=== PATIENT | female | born 1940 | race Caucasian/White ===

== ENCOUNTER → 2020-01-26 | Outpatient (CLI) | payer MEDICARE, BC ==
--- NOTE | 2020-01-26 17:23 | RADIOLOGY REPORT (SQ) ---
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 TECHNIQUE: Dynamic and static lozano scale and color images acquired of the right leg venous system. S elected spectral images acquired with additional compression and augmentation maneuvers. The contrala teral common femoral vein and saphenofemoral junction were also imaged. Images stored on PACS. LIMITATIONS: None. FINDINGS: COMMON FEMORAL: Normal phasicity, compression and augmentation. No visualized echogenic ma terial on lozano scale. No defects on color images. FEMORAL: Normal compression and augmentation. No visualized echogenic material on lozano scale. No defe cts on color images. POPLITEAL: Normal compression, augmentation. No visualized echogenic material on lozano scale. No defec ts on color images. CALF VESSELS: Decreased compressibility and nonocclusive intraluminal defect on grayscale and color f low evaluation within the peroneal vein compatible with thrombus. GSV and SSV: Normal compression, augmentation. No visualized echogenic material on lozano scale. No def ects on color images. ANY DEEP VENOUS INSUFFICIENCY: Not evaluated. ANY EVIDENCE OF POPLITEAL CYST: No. OTHER: No other significant finding. CONTRALATERAL COMMON FEMORAL VEIN AND SAPHENOFEMORAL JUNCTION: Normal phasicity, compression and augmentation. No visualized echogenic material on lozano scale. No de fects on color images. IMPRESSION: Nonocclusive short segment acute appearing DVT within the right peroneal vein. TECHNICAL DOCUMENTATION: JOB ID: [id number] 2010 [employer]- All Rights Reserved Reading location - IP/workstation name: [email or web address]
== END ==
LOC: SP 15:41
PROVIDERS: ATTEND Radiology Radiation Oncology
DX: C53.9 Malignant neoplasm of cervix uteri, unspecified (principal); M79.661 Pain in right lower leg
CPT/HCPCS: 93971

== ENCOUNTER 2020-02-02 09:39 | Day surgery (SDC) | payer MEDICARE, BC ==
[2020-01-29 12:33] LABS: ABSOLUTE BASOPHILS # (AUTO) 0.1 10^3/uL (0.0-0.2); ABSOLUTE EOSINOPHILS # (AUTO) 0.1 10^3/uL (0.0-0.6); ABSOLUTE LYMPHOCYTES (AUTO) 1.8 10^3/uL (0.5-4.7); ABSOLUTE NEUT (AUTO) 14.2 10^3/uL (1.7-8.2); BASOPHILS % (AUTO) 0.6 % (0-2); EOSINOPHILS % (AUTO) 0.6 % (0-6); HEMOGLOBIN 11.2 g/dL (12.0-15.5); LYMPHOCYTES % (AUTO) 10.6 % (13-45); MEAN CORPUSCULAR HEMOGLOBIN 30.1 pg (27.0-33.4); MEAN CORPUSCULAR HGB CONC 33.9 g/dL (32.0-36.0); MEAN CORPUSCULAR VOLUME 89 fl (80-97); MONOCYTES % (AUTO) 5.8 % (3-13); PLATELET COUNT 454 10^3/uL (150-450); RED BLOOD COUNT 3.72 10^6/uL (3.72-5.28); RED CELL DISTRIBUTION WIDTH 14.4 % (11.5-14.0); SEGMENTED NEUTROPHILS % (AUTO) 82.4 % (42-78); TOTAL CELLS COUNTED % (AUTO) 100 %; WHITE BLOOD COUNT 17.2 10^3/uL (4.0-10.5)
--- NOTE | 2020-01-29 12:34 | RADIOLOGY REPORT (SQ) ---
EXAM DESCRIPTION: CHEST PA/LATERAL IMAGES COMPLETED DATE/TIME: 01/29/2020 11:32 am REASON FOR STUDY: PRE-OP COMPARISON: None. EXAM PARAMETERS: NUMBER OF VIEWS: two views TECHNIQUE: Digital Frontal and Lateral radiographic views of the chest acquired. RADIATION DOSE: NA LIMITATIONS: none FINDINGS: LUNGS AND PLEURA: Elevated right hemidiaphragm. No infiltrate or effusion. No mass. MEDIASTINUM AND HILAR STRUCTURES: No masses or contour abnormalities. HEART AND VASCULAR STRUCTURES: Heart normal size. No evidence for failure. BONES: No acute findings. HARDWARE: None in the chest. OTHER: No other significant finding. IMPRESSION: NO SIGNIFICANT RADIOGRAPHIC FINDING IN THE CHEST. TECHNICAL DOCUMENTATION: JOB ID: [id number] 2010 [employer]- All Rights Reserved Reading location - IP/workstation name: [email or web address]
[2020-01-29 12:59] LABS: ANION GAP 15 (5-19); BLOOD UREA NITROGEN 53 mg/dL (7-20); CARBON DIOXIDE 28 mmol/L (22-30); CHLORIDE 94 mmol/L (98-107); GLUCOSE 136 mg/dL (75-110); POTASSIUM 4.4 mmol/L (3.6-5.0)
--- NOTE | 2020-01-29 19:27 | EKG REPORT ---
SEVERITY:- ABNORMAL ECG - SINUS RHYTHM NONSPECIFIC T ABNORMALITIES, ANT-LAT LEADS : Confirmed by: Brianna Cardoso MD 29-Jan-2020 19:25:55
[~2020-02-02 09:39] MED LIST: CEFAZOLIN 1 GM/D5W RTU 1 GM/50 ML RTUPB IV PRN; FENTANYL CITRATE INJ/PF 100 MCG/2 ML AMPUL ONE; LACTATED RINGERS 1000 ML IV PRN; MIDAZOLAM 2 MG/2 ML INJ ONE; ONDANSETRON HCL INJ/PF 4 MG/2 ML SDV ONE; PROPOFOL INJ 200 MG/20 ML VIAL IV ONE
[2020-02-02] MEDS ORDERED: CEFAZOLIN 1 GM/D5W RTU 1 GM/50 ML RTUPB IV ONE (10:19)
[2020-02-02 11:14] LABS: INTERNATIONAL RATION (INR) 1.05; PARTIAL THROMBOPLASTIN TIME 31.1 SEC (23.5-35.8); PROTHROMBIN TIME 13.9 SEC (11.4-15.4)
[2020-02-02 11:28] LABS: POTASSIUM 3.7 mmol/L (3.6-5.0)
[2020-02-02] MEDS ORDERED: HEPARIN SOD (PORCINE) 1,000 UNIT/ML 1 ML VIAL ONE (12:13)
[2020-02-02] MEDS ORDERED: LIDOCAINE 1%/EPINEPHRINE INJ 20 ML VIAL ONE (12:13)
[2020-02-02] MEDS ORDERED: ONDANSETRON HCL INJ/PF 4 MG/2 ML SDV IV PRN (12:54)
[2020-02-02] MEDS ORDERED: DIPHENHYDRAMINE HCL 50 MG/ML VIAL IV PRN (12:54)
[2020-02-02] MEDS ORDERED: MORPHINE SULFATE 10 MG/ML INJ IV PRN (12:54)
[2020-02-02] MEDS ORDERED: PROMETHAZINE HCL INJ 25 MG/1 ML VIAL IV PRN (12:54)
[2020-02-02] MEDS ORDERED: MEPERIDINE HCL/PF INJ 25 MG/1 ML DISP.SYRIN IV PRN (12:54)
[2020-02-02] MEDS ORDERED: FENTANYL CITRATE INJ/PF 100 MCG/2 ML AMPUL IV PRN ×3 (12:54)
[2020-02-02] MEDS ORDERED: OXYCODONE-ACETAMINOPHEN 5-325 MG TABLET PO PRN (12:54)
--- NOTE | 2020-02-02 13:29 | Operative Report ---
Nonrecallable Operative Report DATE OF SURGERY: 02/02/20 PREOPERATIVE DIAGNOSIS: vaginal cancer POSTOPERATIVE DIAGNOSIS: vaginal cancer OPERATION: portacath placement SURGEON: EMILY HEDRICK ANESTHESIA: Moderate Sedation TISSUE REMOVED OR ALTERED: none COMPLICATIONS: none ESTIMATED BLOOD LOSS: 0 INTRAOPERATIVE FINDINGS: see note PROCEDURE: Patient was brought to the operating when awake alert stable condition placed on the operative table supine position and the neck and chest were prepped and draped in usual sterile fashion. After appropriate timeout and site verification the procedure commenced. A right subclavian vein access was accomplished with a 16-gauge needle after anesthetizing the area with 1% lidocaine with epinephrine. A J-wire was then placed through the 16-gauge needle into the superior vena cava confirmed on fluoroscopy Over the wire a dilator tear-away introducer combination was placed into the superior vena cava. Once that was accomplished the catheter was placed through the tear-away introducer which was torn away the tip of the catheter was noted at the atriocaval junction. After anesthetizing the anterior chest wall with 1% lidocaine with epinephrine a transverse incision was made to create the pocket for the port. Dissection was carried down through subcutaneous tissue with Bovie cautery and a small pocket was made for the port. Th catheter was then tunneled maker supplied with a kit. It was attached to the port and confirmed good flow and withdrawal. Dtunneled underneath the skin from the subclavian stick site to the port site using the repeat fluoroscopy revealed good position of the catheter. The subcutis tissue was then closed with interrupted 3-0 Vicryl sutures and the skin was closed with intracuticular 4 oh bison Steri-Strips completed the procedure may be a loss procedure was negligible sponge needle counts correct x2 the patient was transferred recovery in stable condition.
--- NOTE | 2020-02-02 13:31 | Discharge Summary ---
Discharge Summary (SDC) - Discharge Final Diagnosis: vaginal cancer Date of Surgery: 02/02/20 Discharge Date: 02/02/20 Condition: Good Discharge Diet: As Tolerated Discharge Activity: Activity As Tolerated, No Lifting Over 10 Pounds Report the Following to Your Physician Immediately: Shortness of Breath, Unusual Bleeding - pt can f/u [facility]
[2020-02-02] MEDS ORDERED: FENTANYL CITRATE INJ/PF 100 MCG/2 ML AMPUL ONE (13:43)
--- NOTE | 2020-02-02 15:14 | RADIOLOGY REPORT (SQ) ---
EXAM DESCRIPTION: FLUORO/CV PLACEMENT IMAGES COMPLETED DATE/TIME: 02/02/2020 1:24 pm REASON FOR STUDY: PORTACATH INSERTION C52 MALIGNANT NEOPLASM OF VAGINA Z85.41 PERSONAL HISTORY OF MALIGNANT NEOPLASM OF CERVIX UTER Z85.3 PERSONAL HISTORY OF MALIGNANT NEOPLASM OF BREAST COMPARISON: None. FLUOROSCOPY TIME: 0.9 minutes 1 images saved to PACS. TECHNIQUE: Intra-operative images acquired during surgical procedure to evaluate progress. NUMBER OF IMAGES: 1 LIMITATIONS: None. FINDINGS: Left-sided port tip overlies SVC. IMPRESSION: IMAGE(S) OBTAINED DURING PROCEDURE. COMMENT: Quality ID [id number]: Final reports for procedures using fluoroscopy that document radiation exp osure indices, or exposure time and number of fluorographic images (if radiation exposure indices are not available) Please consult full operative report of the attending physician for description of the procedure. TECHNICAL DOCUMENTATION: JOB ID: [id number] 2010 [employer]- All Rights Reserved Reading location - IP/workstation name: [email or web address]
--- NOTE | 2020-02-02 15:26 | RADIOLOGY REPORT (SQ) ---
EXAM DESCRIPTION: CHEST SINGLE VIEW IMAGES COMPLETED DATE/TIME: 02/02/2020 3:03 pm REASON FOR STUDY: POST OP PORT A CATH PLACEMENT COMPARISON: 01/29/2020 EXAM PARAMETERS: NUMBER OF VIEWS: One view. TECHNIQUE: Single frontal radiographic view of the chest acquired. RADIATION DOSE: NA LIMITATIONS: None. FINDINGS: LUNGS AND PLEURA: Left-sided Wefkut-G-Ksji is been placed. Catheter tip overlies the SVC. No pneumothorax. Stable elevation of the right hemidiaphragm. MEDIASTINUM AND HILAR STRUCTURES: No masses. Contour normal. HEART AND VASCULAR STRUCTURES: Heart normal in size. Normal vasculature. BONES: No acute findings. HARDWARE: Surgical clips in the right axilla are unchanged. OTHER: No other significant finding. IMPRESSION: No acute findings following left-sided port placement. TECHNICAL DOCUMENTATION: JOB ID: [id number] 2010 [employer]- All Rights Reserved Reading location - IP/workstation name: [email or web address]
[2020-02-02 15:58] VITALS: BP 119/63
== END 2020-02-02 16:00 | disposition home or self-care (01) ==
LOC: OROUT 09:39
PROVIDERS: ATTEND Surgery
DX: C52 Malignant neoplasm of vagina (principal); Z03.818 Encounter for observation for suspected exposure to other biological agents ruled out; Z85.41 Personal history of malignant neoplasm of cervix uteri; Z85.3 Personal history of malignant neoplasm of breast; Z79.899 Other long term (current) drug therapy; I10 Essential (primary) hypertension; E11.9 Type 2 diabetes mellitus without complications; Z79.84 Long term (current) use of oral hypoglycemic drugs; Z79.891 Long term (current) use of opiate analgesic; Z88.8 Allergy status to other drugs, medicaments and biological substances; J44.9 Chronic obstructive pulmonary disease, unspecified; E78.5 Hyperlipidemia, unspecified; Z86.73 Personal history of transient ischemic attack (TIA), and cerebral infarction without residual deficits; D64.9 Anemia, unspecified
CPT/HCPCS: 36561; 93005; 36415 ×2; 82947; 84132; 85025; 85610; 85730; 80048; 71046; 71045; 77001; 93010; C1788; Q9967; U0003; J2250; J0690; J3010; J1644; J3490; J2405; J2704; C9803; 532; 87635

== ENCOUNTER 2020-02-06 13:32 | Inpatient (IN) | payer MEDICARE, BC ==
--- NOTE | 2020-02-06 13:54 | ER Document Report ---
ED Medical Screen (RME) - General Chief Complaint: Weakness Stated Complaint: WEAKNESS Time Seen by Provider: 02/06/20 13:51 Mode of Arrival: Wheelchair Information source: Patient Notes: 79-year-old female presents to ED for complaint of extreme weakness. She states is been started in March increased in September and has been extremely weak for the last 2 weeks. States she did see Dr. Hernandes yesterday who is her oncologist. She does have vaginal cancer. She states she is much weaker today than she was yesterday. She was placed to get chemotherapy yesterday and radiation treatment today and she was 2 weeks is 1. She states Dr. Pratt is a radiation doctor. Patient is very weak very low voice very tired and has a fistula. I have greeted and performed a rapid initial assessment of this patient. A comprehensive ED assessment and evaluation of the patient, analysis of test results and completion of medical decision making process will be conducted by an additional ED providers. - Related Data Allergies/Adverse Reactions: VENTURA Inhibitors Adverse Reaction (Verified 02/02/20 09:56) peanut Adverse Reaction (Verified 02/02/20 09:56) Tetanus Vaccines and Toxoid Adverse Reaction (Verified 02/02/20 09:56) Past Medical History - Past Medical History Cardiac Medical History: Reports: Hx Hypertension - HIGH AND LOW BP Denies: Hx Coronary Artery Disease, Hx Heart Attack Pulmonary Medical History: Reports: Hx COPD Denies: Hx Asthma, Hx Bronchitis, Hx Pneumonia Neurological Medical History: Denies: Hx Cerebrovascular Accident, Hx Seizures Musculoskeltal Medical History: Reports Hx Arthritis - Immunizations Hx Diphtheria, Pertussis, Tetanus Vaccination: No Physical Exam - Vital signs Vitals: Temp Pulse Resp BP Pulse Ox 99 F 68 20 107/57 L 97 02/06/20 13:38 02/06/20 13:38 02/06/20 13:38 02/06/20 13:38 02/06/20 13:38 Course - Vital Signs Vital signs: Temp Pulse Resp BP Pulse Ox 99.0 F 68 20 107/57 L 97 02/06/20 13:46 02/06/20 13:38 02/06/20 13:38 02/06/20 13:38 02/06/20 13:38
[2020-02-06 16:56] LABS: ABSOLUTE LYMPHOCYTES (AUTO) 1.3 10^3/uL (0.5-4.7); ABSOLUTE MONOCYTES (AUTO) 0.8 10^3/uL (0.1-1.4); ABSOLUTE NEUT (AUTO) 13.1 10^3/uL (1.7-8.2); BASOPHILS % (AUTO) 0.2 % (0-2); EOSINOPHILS % (AUTO) 0.2 % (0-6); HEMATOCRIT 28.7 % (36.0-47.0); HEMOGLOBIN 9.6 g/dL (12.0-15.5); LYMPHOCYTES % (AUTO) 8.5 % (13-45); MEAN CORPUSCULAR HEMOGLOBIN 29.8 pg (27.0-33.4); MEAN CORPUSCULAR HGB CONC 33.6 g/dL (32.0-36.0); MEAN CORPUSCULAR VOLUME 89 fl (80-97); MONOCYTES % (AUTO) 5.5 % (3-13); PLATELET COUNT 377 10^3/uL (150-450); RED BLOOD COUNT 3.24 10^6/uL (3.72-5.28); RED CELL DISTRIBUTION WIDTH 14.7 % (11.5-14.0); SEGMENTED NEUTROPHILS % (AUTO) 85.6 % (42-78); TOTAL CELLS COUNTED % (AUTO) 100 %; WHITE BLOOD COUNT 15.3 10^3/uL (4.0-10.5)
--- NOTE | 2020-02-06 17:08 | ER Document Report ---
ED General - General Mode of Arrival: Wheelchair <BRYCE GIL - Last Filed: 02/06/20 20:07> <MARLENMACK LEVINE - Last Filed: 02/06/20 22:56> - General Chief Complaint: Weakness Stated Complaint: WEAKNESS Time Seen by Provider: 02/06/20 13:51 - HPI Notes: 79-year-old female with past medical history of diabetes, hypertension to the emergency department with complaints of progressively worsening weakness. The patient is currently being seen by Dr. Alcala for oncology. 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 This was diagnosed approximately a month and a half ago in [place]. She states she has had 2 rounds of radiation but has not had any chemo. She states that over the past week she is just been getting more and more weak. She saw Dr. High yesterday and they gave her about a fluids and decided not to do chemo. 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 She states that everything has kind of been mixed together because of the fistula. She states that she is been off and on Macrobid since March for urinary tract infections that she keeps obtaining. She states that she has lower abdominal pain that began yesterday and is gotten worse today. Denies any nausea or vomiting, fevers or chills, chest pain, shortness of breath. She states that anytime she moves around she feels overwhelming exhaustion. (BRYCE GIL) - Related Data Allergies/Adverse Reactions: VENTURA Inhibitors Adverse Reaction (Verified 02/02/20 09:56) peanut Adverse Reaction (Verified 02/02/20 09:56) Tetanus Vaccines and Toxoid Adverse Reaction (Verified 02/02/20 09:56) Past Medical History - General Information source: Patient - Social History Smoking Status: Unknown if Ever Smoked Patient has homicidal ideation: No - Past Medical History Cardiac Medical History: Reports: Hx Hypertension - HIGH AND LOW BP Denies: Hx Coronary Artery Disease, Hx Heart Attack Pulmonary Medical History: Reports: Hx COPD Denies: Hx Asthma, Hx Bronchitis, Hx Pneumonia Neurological Medical History: Denies: Hx Cerebrovascular Accident, Hx Seizures Musculoskeletal Medical History: Reports Hx Arthritis - Immunizations Hx Diphtheria, Pertussis, Tetanus Vaccination: No <BRYCE GIL - Last Filed: 02/06/20 20:07> - Social History Smoking Status: Former Smoker Lives with: Family Family History: Reviewed & Not Pertinent <MACK FRAZIER - Last Filed: 02/06/20 22:56> Review of Systems - Review of Systems Constitutional: See HPI EENT: No symptoms reported Cardiovascular: No symptoms reported Respiratory: No symptoms reported Gastrointestinal: See HPI Genitourinary: No symptoms reported Female Genitourinary: No symptoms reported Musculoskeletal: No symptoms reported Skin: No symptoms reported Hematologic/Lymphatic: No symptoms reported Neurological/Psychological: No symptoms reported <MACK FRAZIER - Last Filed: 02/06/20 22:56> Physical Exam <MACK FRAZIER - Last Filed: 02/06/20 22:56> - Vital signs Vitals: Temp Pulse Resp BP Pulse Ox 99 F 68 20 107/57 L 97 02/06/20 13:38 02/06/20 13:38 02/06/20 13:38 02/06/20 13:38 02/06/20 13:38 - Notes Notes: GENERAL: Alert, interactive, oriented. Patient is weak and has difficulty even sitting up. HEAD: Normocephalic, atraumatic. EYES: Pupils equal, round, and reactive to light. Extraocular movements intact. ENT: Oral mucosa moist, tongue midline. Oropharynx unremarkable. Airway patent. LUNGS: Clear to auscultation bilaterally, no wheezes, rales, or rhonchi. No respiratory distress. Non-tender chest wall. HEART: Regular rate and rhythm. No murmur ABDOMEN: Generalized mid to lower abdominal tenderness, nonspecific, no guarding. EXTREMITIES: Moves all 4 extremities spontaneously. No edema, normal radial and dorsalis pedis pulses bilaterally. No cyanosis. BACK: no cervical, thoracic, lumbar midline tenderness. No saddle anesthesia, normal distal neurovascular exam. NEUROLOGICAL: Alert and oriented x3. Normal speech. Cranial nerves II through XII grossly intact. SKIN: Warm, dry, normal turgor. No rashes or lesions noted. (MACK FRAZIER) Course - Laboratory Result Diagrams: 02/06/20 16:35 02/06/20 16:35 <BRYCE GIL - Last Filed: 02/06/20 20:07> - Laboratory Result Diagrams: 02/06/20 16:35 02/06/20 16:35 <MACK FRAZIER - Last Filed: 02/06/20 22:56> - Re-evaluation Re-evalutation: 02/06/20 20:07 Turned patient over ANGELITO Frazier. Await CT, lactic acid, UA and really disposition patient. Likely admission. (BRYCE GIL) On my evaluation patient is complaining of abdominal pain, she is requesting additional pain medication, she states the 2 mg of morphine from earlier did help. Blood pressure is 121 systolic. This was ordered. Patient is weak, has difficulty sitting up, however she does not have any other complaints, no fever, no vomiting. 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 CT of the abdomen pelvis shows diverticulitis and/or colitis, no perforation or abscess. Mass is noted but is not changed from prior. Patient has received Zosyn antibiotics from the previous provider. I discussed with patient and daughter. Patient will be discussed with hospitalist for admission. Patient has primary care down in [place], has followed here with Dr. High, has seen Dr. Arciniega general surgery in consult. I called and spoke with Dr. Jones, hospitalist, patient accepted to [facility] for admission. (MACK FRAZIER) - Vital Signs Vital signs: Temp Pulse Resp BP Pulse Ox 98.5 F 68 15 121/49 L 96 02/06/20 17:10 02/06/20 13:38 02/06/20 22:01 02/06/20 22:00 02/06/20 22:01 - Laboratory Laboratory results interpreted by me: 02/06/20 02/06/20 02/06/20 16:35 16:35 16:35 WBC 15.3 H RBC 3.24 L Hgb 9.6 L Hct 28.7 L RDW 14.7 H Lymph % (Auto) 8.5 L Absolute Neuts (auto) 13.1 H Seg Neutrophils % 85.6 H Sodium 135.2 L Lactic Acid Ionized Calcium Dulce Maria 1.10 L Direct Bilirubin 0.5 H Creatine Kinase 23 L Total Protein 5.7 L Albumin 2.8 L 02/06/20 19:24 WBC RBC Hgb Hct RDW Lymph % (Auto) Absolute Neuts (auto) Seg Neutrophils % Sodium Lactic Acid 0.6 L Ionized Calcium Dulce Maria Direct Bilirubin Creatine Kinase Total Protein Albumin Discharge <BRYCE GIL - Last Filed: 02/06/20 20:07> - Discharge Admitting Provider: Karen (Hospitalist) Unit Admitted: Medical Floor <MACK FRAZIER - Last Filed: 02/06/20 22:56> - Discharge Clinical Impression: Colitis, Weakness Leukocytosis Qualifiers: Leukocytosis type: unspecified Qualified Code(s): D72.829 - Elevated white blood cell count, unspecified Abdominal pain Qualifiers: Abdominal location: generalized Qualified Code(s): R10.84 - Generalized abdominal pain Condition: Stable Disposition: ADMITTED INPATIENT
[2020-02-06 17:12] LABS: ALBUMIN 2.8 g/dL (3.5-5.0); ALKALINE PHOSPHATASE 56 U/L (38-126); ANION GAP 8 (5-19); ASPARTATE AMINO TRANSFERASE 29 U/L (14-36); BILIRUBIN,DIRECT 0.5 mg/dL (0.0-0.4); BILIRUBIN,TOTAL 0.7 mg/dL (0.2-1.3); BLOOD UREA NITROGEN 18 mg/dL (7-20); CALCIUM 8.5 mg/dL (8.4-10.2); CARBON DIOXIDE 28 mmol/L (22-30); CHLORIDE 99 mmol/L (98-107); CREATINE KINASE 23 U/L (30-135); GLUCOSE 101 mg/dL (75-110); PHOSPHORUS 3.4 mg/dL (2.5-4.5); POTASSIUM 3.6 mmol/L (3.6-5.0); TOTAL PROTEIN 5.7 g/dL (6.3-8.2)
[2020-02-06 17:24] LABS: TROPONIN I < 0.012 ng/mL
[2020-02-06] MEDS ORDERED: LIDOCAINE 2% URO-JET 5 ML KIT MM ONE (17:29)
--- NOTE | 2020-02-06 17:51 | RADIOLOGY REPORT (SQ) ---
EXAM DESCRIPTION: CHEST SINGLE VIEW IMAGES COMPLETED DATE/TIME: 02/06/2020 5:41 pm REASON FOR STUDY: weakness COMPARISON: 02/02/2020 EXAM PARAMETERS: NUMBER OF VIEWS: One view. TECHNIQUE: Single frontal radiographic view of the chest acquired. RADIATION DOSE: NA LIMITATIONS: None. FINDINGS: LUNGS AND PLEURA: No opacities, masses or pneumothorax. No pleural effusion. MEDIASTINUM AND HILAR STRUCTURES: No masses. Contour normal. HEART AND VASCULAR STRUCTURES: Heart normal in size. Normal vasculature. BONES: No acute findings. HARDWARE: Injection port on the left. OTHER: No other significant finding. IMPRESSION: NO ACUTE RADIOGRAPHIC FINDING IN THE CHEST. TECHNICAL DOCUMENTATION: JOB ID: [id number] 2010 [employer]- All Rights Reserved Reading location - IP/workstation name: [email or web address]
--- NOTE | 2020-02-06 18:12 | EKG REPORT ---
SEVERITY:- ABNORMAL ECG - SINUS RHYTHM BORDERLINE RIGHT AXIS DEVIATION ABNORMAL T, CONSIDER ISCHEMIA, LATERAL LEADS : Confirmed by: Tylor Buitrago 06-Feb-2020 18:11:00
[2020-02-06] MEDS ORDERED: NORMAL SALINE 250 ML IV ONE (18:55)
[2020-02-06] MEDS ORDERED: ONDANSETRON HCL INJ/PF 4 MG/2 ML SDV IV ONE (19:01)
[2020-02-06] MEDS ORDERED: MORPHINE SULFATE 10 MG/ML INJ IV ONE ×2 (19:01→22:48)
[2020-02-06] MEDS ORDERED: PIPERACILLIN/TAZOBACTAM 3.375 GM VIAL IV ONE (19:02)
--- NOTE | 2020-02-06 20:21 | RADIOLOGY REPORT (SQ) ---
EXAM DESCRIPTION: CLINICAL HISTORY: 79 years Female; abdominal pain, cancer patient TECHNIQUE: CT of the abdomen and pelvis without intravenous contrast.. Oral contrastWas not used. All CT scans at this facility use dose modulation, iterative reconstruction, and/or weight based dosing when appropriate to reduce radiation dose to as low as reasonably achievable. This exam was performed according to our department optimization program which includes automated exposure control, adjustment of the mA and/or kv according to patient size and/or use of iterative reconstruction technique. COMPARISON: CT scan associated with the PET scan 01/05/2020 report for this exam is not available. FINDINGS: Lower chest: Volume loss is present in the right middle lobe. No definite pulmonary nodules or masses. Heart size is within normal limits. Abdomen: Liver and biliary tree: The unenhanced liver and gallbladder are unremarkable. Pancreas: Normal Spleen:Within normal limits Kidneys: Kidneys are normal in size, shape and position. No stones. No mass or hydronephrosis. Adrenal glands:Within normal limits Vascular structures: Scattered vascular calcifications are present in the aorta and iliac vessels. No aneurysm. Retroperitoneum: No mass or lymphadenopathy Abdominal wall: normal GI: Moderate stool is present in the right colon. There is bowel wall thickening beginning at the level of the iliac crest on the sigmoid colon and extending towards the rectum. There is pericolonic edema. This is in association with multiple diverticula. Findings suggest colitis or diverticulitis. No definitive abscess. Appendix: The appendix is not clearly seen General: Soft tissue stranding and edema is noted adjacent to the left colon. Pelvis: Lymph nodes: No mass or lymphadenopathy Bladder: Unremarkable. Pelvis: In the midline located between the posterior bladder and the anterior aspect of the rectum is an irregular soft tissue mass which contains air and fluid. The appearance is similar to the previous exam. Bones: Osseous fusion is noted at L4-5. IMPRESSION: 1. Interval development of inflammation and bowel wall thickening in the sigmoid colon and rectal vault suggestive of colitis and/or diverticulitis. 2. Probable soft tissue mass in the midline between the bladder and the rectum in the expected location of the uterus. The appearance is unchanged.
[2020-02-06] MEDS ORDERED: NORMAL SALINE 1000 ML 1,000 ML IV PRN (22:53)
[2020-02-06] MEDS ORDERED: ONDANSETRON HCL INJ/PF 4 MG/2 ML SDV IV PRN (23:42)
[2020-02-06] MEDS ORDERED: MAG HYDROX/AL HYDROX/SIMETH SUSP 30 ML UDCUP PO PRN (23:42)
[2020-02-06] MEDS ORDERED: MEROPENEM 1 GM VIAL IV PRN (23:45)
[2020-02-06] MEDS ORDERED: MELATONIN 5 MG TABLET PO PRN (23:48)
[2020-02-06] MEDS ORDERED: GUAIFENESIN SYRP 200 MG/10 ML UDC PO PRN (23:48)
[2020-02-06] MEDS ORDERED: ACETAMINOPHEN 325 MG TABLET PO PRN (23:48)
[2020-02-06] MEDS ORDERED: HYDRALAZINE HCL INJ/PF 20 MG/1 ML SDV IV PRN (23:48)
[2020-02-06] MEDS ORDERED: MORPHINE SULFATE 10 MG/ML INJ IV PRN (23:48)
[2020-02-06] MEDS ORDERED: INSULIN REG, HUMAN 100 UNIT/ML 3 ML VIAL (PYX) SUBCUT PRN (23:48)
[2020-02-06] MEDS ORDERED: DEXTROSE 50%-WATER 25 GM/50 ML DISP.SYRIN IV PRN ×2 (23:49)
[2020-02-06] MEDS ORDERED: GLUCAGON,HUMAN RECOMB 1 MG INJ IM PRN (23:49)
[2020-02-06] MEDS ORDERED: DEXTROSE 40% GEL 15 GM TUBE PO PRN ×2 (23:49)
[2020-02-07] MEDS ORDERED: MEROPENEM 1 GM VIAL ONE (00:06)
[2020-02-07] MEDS ORDERED: MORPHINE SULFATE 10 MG/ML INJ IV PRN ×2 (00:09→00:10)
--- NOTE | 2020-02-07 01:16 | PDOC H&P ---
History of Present Illness Admission Date/PCP: 02/06/2020 23:12 Alexandra High MD Patient complains of: Generalized weakness History of Present Illness: MINOO LEWIS is a 79 year old female who presented to the emergency room with a 1 week history of generalized weakness. She admits progressively worsening generalized weakness accompanied by severe fatigue with malaise and associated with progressive we worsening anorexia over the last week and a vague lower abdominal pain which developed over the last 2 days. Her weakness is exacerbated with any exertion or activity. She denies other associated or accompanying signs and symptoms. She denies prior similar episodes. She has not identified any additional aggravating or ameliorating factors for her weakness. Her vaginal cancer with a rectovaginal fistula was diagnosed 6 weeks ago and she has undergone radiation therapy but has not been able to start chemotherapy with Dr. High due to her current illness. She was also found to have a deep venous thrombosis in her right lower extremity 1 week ago. In the emergency room she was found to have an acute sigmoid colitis/diverticulitis on CT scan of the abdomen and a leukocytosis. She was subsequently admitted hospital for further evaluation and treatment. Past Medical History Cardiac Medical History: Reports: DVT, Hypertension - HIGH AND LOW BP Denies: Coronary Artery Disease, Myocardial Infarction, Pulmonary Embolism Pulmonary Medical History: Reports: Chronic Obstructive Pulmonary Disease (COPD) Denies: Asthma, Bronchitis, Pneumonia EENT Medical History: Denies: Cataracts, Ears - Raynaud's Neurological Medical History: Denies: Hemorrhagic CVA, Ischemic CVA, Seizures Endocrine Medical History: Reports: Diabetes Mellitus Type 2 Denies: Diabetes Mellitus Type 1, Hyperthyroidism, Hypothyroidism Renal/ Medical History: Denies: Chronic Kidney Disease, Nephrolithiasis Malignancy Medical History: Reports: Skin Cancer, Other - Cervical cancer, vaginal cancer GI Medical History: Denies: Cirrhosis, Hepatitis, Peptic Ulcer Disease Musculoskeltal Medical History: Reports: Arthritis Denies: Fibromyalgia Skin Medical History: Denies: Eczema, Psoriasis Psychiatric Medical History: Denies: Alcohol Dependency, Substance Abuse, Tobacco Dependency Traumatic Medical History: Reports: None Hematology: Reports: Anemia Denies: Bleeding Tendencies Infectious Medical History: Reports: None Past Surgical History Past Surgical History: Reports: Hysterectomy, Vascular Surgery - Port-A-Cath, Other - Colonoscopy, skin cancer excision, lumpectomy right breast Social History Information Source: Patient Lives with: Family Smoking Status: Never Smoker Electronic Cigarette use?: No Frequency of Alcohol Use: None Hx Recreational Drug Use: No Drugs: None Hx Prescription Drug Abuse: No - Advance Directive Resuscitation Status: Full Code Surrogate healthcare decision maker:: Chloetani Putnam Family History Family History: CAD, Malignancy Parental Family History Reviewed: Yes Children Family History Reviewed: No Sibling(s) Family History Reviewed.: Yes Medication/Allergy Home Medications: Hydrochlorothiazide 12.5 mg PO DAILY 02/02/20 Losartan Potassium [Cozaar 25 mg Tablet] 25 mg PO DAILY 02/02/20 Metformin HCl 500 mg PO DAILY 02/02/20 Morphine Sulfate [Morphine Sulfate ER] 50 mg PO PRN PRN 02/02/20 Nitrofurantoin Macrocrystal [Nitrofurantoin] 100 mg PO DAILY 02/02/20 Ondansetron HCl [Zofran] 8 mg PO PRN PRN 02/02/20 Propranolol HCl [Inderal 10 mg Tablet] 10 mg PO Q12 02/02/20 Rosuvastatin Calcium 5 mg PO PRN PRN 02/02/20 Tramadol HCl [Ultram] 50 mg PO PRN PRN 02/02/20 Allergies/Adverse Reactions: VENTURA Inhibitors Adverse Reaction (Verified 02/02/20 09:56) peanut Adverse Reaction (Verified 02/02/20 09:56) Tetanus Vaccines and Toxoid Adverse Reaction (Verified 02/02/20 09:56) Review of Systems Constitutional: PRESENT: as per HPI, anorexia, fatigue, weakness Eyes: ABSENT: visual disturbances, other - Eye pain Ears: ABSENT: hearing changes, other - Ear pain Nose, Mouth, and Throat: ABSENT: headache(s), sore throat Cardiovascular: PRESENT: edema - Right lower extremity. ABSENT: chest pain, palpitations Respiratory: ABSENT: cough, dyspnea Gastrointestinal: PRESENT: as per HPI, abdominal pain. ABSENT: constipation, diarrhea, nausea, vomiting Genitourinary: PRESENT: other - Frequent urinary tract infections. ABSENT: dysuria, hematuria Musculoskeletal: PRESENT: muscle weakness - Generalized. ABSENT: joint swelling Integumentary: ABSENT: pruritus, rash Neurological: ABSENT: confusion, convulsions, focal weakness, memory loss, syncope Psychiatric: ABSENT: anxiety, depression Endocrine: ABSENT: cold intolerance, heat intolerance Hematologic/Lymphatic: ABSENT: easy bleeding, easy bruising Allergic/Immunologic: ABSENT: seasonal rhinorrhea Physical Exam Vital Signs: Temp Pulse Resp BP Pulse Ox 98.5 F 68 15 121/49 L 96 02/06/20 17:10 02/06/20 13:38 02/06/20 22:01 02/06/20 22:00 02/06/20 22:01 Intake & Output 02/04/20 02/05/20 02/06/20 23:59 23:59 23:59 Intake Total 250 Balance 250 Weight 63.503 kg General appearance: PRESENT: cooperative, other - Appears chronically ill Head exam: PRESENT: atraumatic, normocephalic Eye exam: PRESENT: conjunctiva pink. ABSENT: conjunctival injection, scleral icterus Ear exam: PRESENT: normal external ear exam. ABSENT: bleeding, drainage Mouth exam: PRESENT: dry mucosa, neck supple Neck exam: ABSENT: JVD, thyromegaly, tracheal deviation Respiratory exam: PRESENT: clear to auscultation kwasi, symmetrical, unlabored Cardiovascular exam: PRESENT: RRR. ABSENT: clicks, gallop, rubs Pulses: PRESENT: normal radial pulses, normal dorsalis pedis pul Vascular exam: PRESENT: normal capillary refill. ABSENT: pallor GI/Abdominal exam: PRESENT: hypoactive bowel sounds, soft, tenderness - Left lower quadrant tenderness without point localization Rectal exam: PRESENT: deferred Extremities exam: PRESENT: +2 edema - Right lower extremity. ABSENT: joint swelling Musculoskeletal exam: ABSENT: deformity, dislocation Neurological exam: PRESENT: alert, oriented to person, oriented to place, oriented to time, oriented to situation, CN II-XII grossly intact. ABSENT: motor sensory deficit Psychiatric exam: PRESENT: appropriate affect, normal mood Skin exam: PRESENT: dry, intact, warm. ABSENT: jaundice, rash, urticaria Results Laboratory Results: 02/06/20 16:35 02/06/20 16:35 02/06/20 02/06/20 02/06/20 16:35 16:35 16:35 WBC 15.3 H RBC 3.24 L Hgb 9.6 L Hct 28.7 L MCV 89 MCH 29.8 MCHC 33.6 RDW 14.7 H Plt Count 377 Seg Neutrophils % 85.6 H Sodium 135.2 L Potassium 3.6 Chloride 99 Carbon Dioxide 28 Anion Gap 8 BUN 18 Creatinine 0.90 Est GFR ( Amer) > 60 Glucose 101 Lactic Acid Calcium 8.5 Ionized Calcium Dulce Maria 1.10 L Phosphorus 3.4 Magnesium 2.2 Total Bilirubin 0.7 AST 29 Alkaline Phosphatase 56 Total Protein 5.7 L Albumin 2.8 L Blood Type Antibody Screen 02/06/20 02/06/20 16:35 19:24 WBC RBC Hgb Hct MCV MCH MCHC RDW Plt Count Seg Neutrophils % Sodium Potassium Chloride Carbon Dioxide Anion Gap BUN Creatinine Est GFR ( Amer) Glucose Lactic Acid 0.6 L Calcium Ionized Calcium Dulce Maria Phosphorus Magnesium Total Bilirubin AST Alkaline Phosphatase Total Protein Albumin Blood Type A NEGATIVE Antibody Screen NEGATIVE 02/06/20 02/06/20 16:35 16:35 Creatine Kinase 23 L CK-MB (CK-2) 0.30 Troponin I < 0.012 Impressions: Abdomen/Pelvis CT 02/06/20 17:29 IMPRESSION: 1. Interval development of inflammation and bowel wall thickening in the sigmoid colon and rectal vault suggestive of colitis and/or diverticulitis. 2. Probable soft tissue mass in the midline between the bladder and the rectum in the expected location of the uterus. The appearance is unchanged. Chest X-Ray 02/06/20 17:30 IMPRESSION: NO ACUTE RADIOGRAPHIC FINDING IN THE CHEST. Assessment and Plan - Diagnosis (1) Sigmoid diverticulitis Is this a current diagnosis for this admission?: Yes (2) Weakness Is this a current diagnosis for this admission?: Yes (3) Abdominal pain Qualifiers: Abdominal location: generalized Qualified Code(s): R10.84 - Generalized abdominal pain Is this a current diagnosis for this admission?: Yes (4) Leukocytosis Qualifiers: Leukocytosis type: unspecified Qualified Code(s): D72.829 - Elevated white blood cell count, unspecified Is this a current diagnosis for this admission?: Yes (5) Vaginal cancer Is this a current diagnosis for this admission?: Yes (6) Deep vein thrombosis of right lower extremity Qualifiers: Affected thrombotic vein of extremity: unspecified lower extremity distal vein Chronicity: unspecified Qualified Code(s): I82.4Z1 - Acute embolism and thrombosis of unspecified deep veins of right distal lower extremity Is this a current diagnosis for this admission?: Yes - Plan Summary Summary: Patient will be admitted to the medical floor where she received routine supportive and symptomatic cares. She will be treated with IV meropenem as it is noted she has been on antibiotic therapies for urinary tract infections recently. She will receive IV fluids utilizing lactated Ringer's solution at 167 mL/h. She will receive morphine sulfate 2 to 4 mg IV every 2 hours as needed for pain. She will receive Ativan 1 mg IV every 4 hours as needed for anxiety or restlessness. A routine gynecology consultation will be obtained. A routine oncology consultation will be obtained. Patient will begin restarted on her usual home medications, as appropriate, after her medication list has been verified and reconciled. Before meals and at bedtime Accu-Cheks will be obtained with sliding scale insulin to treat hyperglycemia and a hypoglycemic protocol in place. Additional laboratory and/or radiographic evaluations will be obtained as needed. - Time Time Spent with patient: 15-24 minutes Medications reviewed and adjusted accordingly: Yes Anticipated Discharge Disposition: Home with Home Health Anticipated Discharge Timeframe: Undetermined - Inpatient Certification Based on my medical assessment, after consideration of the patient's comorbidities, presenting symptoms, or acuity I expect that the services needed warrant INPATIENT care.: Yes I certify that my determination is in accordance with my understanding of Medicare's requirements for reasonable and necessary INPATIENT services [42 CFR 412.3e].: Yes Medical Necessity: Need Close Monitoring Due to Risk of Patient Decompensation, Need For IV Fluids, Need for IV Antibiotics, Risk of Complication if Not Cared For in Hospital
[2020-02-07] MEDS: LORAZEPAM INJ 2 MG/1 ML VIAL IV PRN ×2 (01:17→14:48)
[2020-02-07 05:14] LABS: HEMATOCRIT 24.3 % (36.0-47.0); HEMOGLOBIN 8.2 g/dL (12.0-15.5); MEAN CORPUSCULAR HEMOGLOBIN 29.9 pg (27.0-33.4); MEAN CORPUSCULAR HGB CONC 33.6 g/dL (32.0-36.0); MEAN CORPUSCULAR VOLUME 89 fl (80-97); PLATELET COUNT 334 10^3/uL (150-450); RED BLOOD COUNT 2.74 10^6/uL (3.72-5.28); RED CELL DISTRIBUTION WIDTH 14.9 % (11.5-14.0); WHITE BLOOD COUNT 12.4 10^3/uL (4.0-10.5)
[2020-02-07 05:41] LABS: ALBUMIN 2.4 g/dL (3.5-5.0); ALKALINE PHOSPHATASE 47 U/L (38-126); ANION GAP 7 (5-19); ASPARTATE AMINO TRANSFERASE 20 U/L (14-36); BILIRUBIN,DIRECT 0.4 mg/dL (0.0-0.4); BILIRUBIN,TOTAL 0.5 mg/dL (0.2-1.3); BLOOD UREA NITROGEN 16 mg/dL (7-20); CALCIUM 8.1 mg/dL (8.4-10.2); CARBON DIOXIDE 28 mmol/L (22-30); CHLORIDE 101 mmol/L (98-107); GLUCOSE 82 mg/dL (75-110); POTASSIUM 3.3 mmol/L (3.6-5.0)
[2020-02-07] MEDS ORDERED: HEPARIN SOD (PORCINE) 5,000 UNIT/ML 1 ML VIAL SUBCUT SCH (06:00)
[2020-02-07] MEDS ORDERED: MEROPENEM 1 GM in NORMAL SALINE 50 ML IV SCH ×6 (10:00)
[2020-02-07] MEDS: RIVAROXABAN 15 MG TABLET PO SCH ×2 (10:19→17:44)
[2020-02-07] MEDS: MEROPENEM 1 GM in NORMAL SALINE 50 ML IV SCH ×2 (10:19→21:11)
[2020-02-07] MEDS: DOCUSATE SODIUM 100 MG/10 ML UDC PO SCH ×2 (10:25→17:46)
--- NOTE | 2020-02-07 11:59 | PDOC CONSULTATION ---
Consultation Consult Date: 02/07/20 Provider Consulted: CHAUNCEY ALEJANDRE Consult reason:: Hematology/Oncology consultation was requested for patient with advanced vaginal cancer and rectal fistula. History of Present Illness Admission Date/PCP: 02/06/20 23:27 History of Present Illness: MINOO LEWIS is a 79 year old female who was initially diagnosed with cancer many years ago. However, despite treatments it has now become quite advanced. She was started on concurrent chemo and radiation treatments earlier this week, and has received 1 radiation treatment, but then declined all chemotherapy treatments. She was evaluated in the office 2 days ago and given IV fluids, but states that she has continued to get weaker over the past few days. She is not eating very much and is not able to sit up due to the pain. She states that she did not start the duragesic patch, although she has these at home. CT scan in the ED showed inflammation of the bowel wall and pelvic mass similar to previ ously. She was started on antibiotics and IV fluids. She also received morphine for pain. Currently, she states that she is very sleepy. Past Medical History Cardiac Medical History: Reports: DVT, Hypertension - HIGH AND LOW BP Denies: Coronary Artery Disease, Myocardial Infarction, Pulmonary Embolism Pulmonary Medical History: Reports: Chronic Obstructive Pulmonary Disease (COPD) Denies: Asthma, Bronchitis, Pneumonia EENT Medical History: Denies: Cataracts, Ears - Raynaud's Neurological Medical History: Denies: Hemorrhagic CVA, Ischemic CVA, Seizures Endocrine Medical History: Reports: Diabetes Mellitus Type 2 Denies: Diabetes Mellitus Type 1, Hyperthyroidism, Hypothyroidism Renal/ Medical History: Denies: Chronic Kidney Disease, Nephrolithiasis Malignancy Medical History: Reports: Skin Cancer, Other - Cervical cancer, vaginal cancer GI Medical History: Denies: Cirrhosis, Hepatitis, Peptic Ulcer Disease Musculoskeltal Medical History: Reports: Arthritis Denies: Fibromyalgia Skin Medical History: Denies: Eczema, Psoriasis Psychiatric Medical History: Reports: Depression Denies: Alcohol Dependency, Substance Abuse, Tobacco Dependency Traumatic Medical History: Reports: None Hematology: Reports: Anemia Denies: Bleeding Tendencies Infectious Medical History: Reports: None Past Surgical History Past Surgical History: Reports: Hysterectomy, Vascular Surgery - Port-A-Cath, Other - Colonoscopy, skin cancer excision, lumpectomy right breast Social History Lives with: Family Smoking Status: Never Smoker Electronic Cigarette use?: No Frequency of Alcohol Use: None Hx Recreational Drug Use: No Drugs: None Hx Prescription Drug Abuse: No - Advance Directive Resuscitation Status: Full Code Family History Family History: CAD, Malignancy Parental Family History Reviewed: Yes Children Family History Reviewed: No Sibling(s) Family History Reviewed.: Yes Medication/Allergy Home Medications: Hydrochlorothiazide 12.5 mg PO DAILY 02/02/20 Losartan Potassium [Cozaar 25 mg Tablet] 25 mg PO DAILY 02/02/20 Metformin HCl 500 mg PO DAILY 02/02/20 Morphine Sulfate [Morphine Sulfate ER] 50 mg PO PRN PRN 02/02/20 Nitrofurantoin Macrocrystal [Nitrofurantoin] 100 mg PO DAILY 02/02/20 Ondansetron HCl [Zofran] 8 mg PO PRN PRN 02/02/20 Propranolol HCl [Inderal 10 mg Tablet] 10 mg PO Q12 02/02/20 Rosuvastatin Calcium 5 mg PO PRN PRN 02/02/20 Tramadol HCl [Ultram] 50 mg PO PRN PRN 02/02/20 Allergies/Adverse Reactions: VENTURA Inhibitors Adverse Reaction (Verified 02/02/20 09:56) peanut Adverse Reaction (Verified 02/02/20 09:56) Tetanus Vaccines and Toxoid Adverse Reaction (Verified 02/02/20 09:56) Review of Systems Constitutional: ABSENT: fever(s), headache(s) Eyes: ABSENT: visual disturbances Ears: ABSENT: hearing changes Nose, Mouth, and Throat: ABSENT: sore throat Cardiovascular: ABSENT: chest pain Respiratory: ABSENT: dyspnea Gastrointestinal: PRESENT: abdominal pain, diarrhea, nausea, other - copious amounts from fistula. Neurological: PRESENT: weakness Hematologic/Lymphatic: ABSENT: easy bleeding Physical Exam Vital Signs: Temp Pulse Resp BP Pulse Ox 98.0 F 95 17 140/75 H 99 02/07/20 07:59 02/07/20 07:59 02/07/20 07:59 02/07/20 07:59 02/07/20 07:59 Intake & Output 02/06/20 02/07/20 02/08/20 06:59 06:59 06:59 Intake Total 400 Balance 400 Weight 63.503 kg General appearance: PRESENT: no acute distress, thin Exam: 79 year old female. Head exam: PRESENT: normocephalic Eye exam: PRESENT: EOMI Respiratory exam: PRESENT: clear to auscultation kwasi, unlabored Cardiovascular exam: PRESENT: RRR GI/Abdominal exam: PRESENT: soft, tenderness Extremities exam: ABSENT: pedal edema Neurological exam: PRESENT: alert, awake Psychiatric exam: PRESENT: appropriate affect Skin exam: PRESENT: normal color Results Laboratory Results: 02/07/20 04:55 02/07/20 04:55 02/06/20 02/06/20 02/06/20 16:35 16:35 16:35 WBC 15.3 H RBC 3.24 L Hgb 9.6 L Hct 28.7 L MCV 89 MCH 29.8 MCHC 33.6 RDW 14.7 H Plt Count 377 Seg Neutrophils % 85.6 H Sodium 135.2 L Potassium 3.6 Chloride 99 Carbon Dioxide 28 Anion Gap 8 BUN 18 Creatinine 0.90 Est GFR ( Amer) > 60 Glucose 101 Lactic Acid Calcium 8.5 Ionized Calcium Dulce Maria 1.10 L Phosphorus 3.4 Magnesium 2.2 Total Bilirubin 0.7 AST 29 Alkaline Phosphatase 56 Total Protein 5.7 L Albumin 2.8 L TSH Blood Type Antibody Screen 02/06/20 02/06/20 02/07/20 16:35 19:24 04:55 WBC 12.4 H RBC 2.74 L Hgb 8.2 L Hct 24.3 L MCV 89 MCH 29.9 MCHC 33.6 RDW 14.9 H Plt Count 334 Seg Neutrophils % Sodium Potassium Chloride Carbon Dioxide Anion Gap BUN Creatinine Est GFR ( Amer) Glucose Lactic Acid 0.6 L Calcium Ionized Calcium Dulce Maria Phosphorus Magnesium Total Bilirubin AST Alkaline Phosphatase Total Protein Albumin TSH Blood Type A NEGATIVE Antibody Screen NEGATIVE 02/07/20 02/07/20 04:55 04:55 WBC RBC Hgb Hct MCV MCH MCHC RDW Plt Count Seg Neutrophils % Sodium 136.2 L Potassium 3.3 L Chloride 101 Carbon Dioxide 28 Anion Gap 7 BUN 16 Creatinine 0.84 Est GFR ( Amer) > 60 Glucose 82 Lactic Acid Calcium 8.1 L Ionized Calcium Dulce Maria Phosphorus Magnesium 1.9 Total Bilirubin 0.5 AST 20 Alkaline Phosphatase 47 Total Protein 5.0 L Albumin 2.4 L TSH 0.65 Blood Type Antibody Screen 02/06/20 02/06/20 16:35 16:35 Creatine Kinase 23 L CK-MB (CK-2) 0.30 Troponin I < 0.012 Impressions: Abdomen/Pelvis CT 02/06/20 17:29 IMPRESSION: 1. Interval development of inflammation and bowel wall thickening in the sigmoid colon and rectal vault suggestive of colitis and/or diverticulitis. 2. Probable soft tissue mass in the midline between the bladder and the rectum in the expected location of the uterus. The appearance is unchanged. Chest X-Ray 02/06/20 17:30 IMPRESSION: NO ACUTE RADIOGRAPHIC FINDING IN THE CHEST. Status: Image reviewed by me Assessment & Plan - Diagnosis (1) Deep vein thrombosis of right lower extremity Qualifiers: Affected thrombotic vein of extremity: unspecified lower extremity distal vein Chronicity: unspecified Qualified Code(s): I82.4Z1 - Acute embolism and thrombosis of unspecified deep veins of right distal lower extremity Is this a current diagnosis for this admission?: Yes Plan: Continue blood thinners without changes. (2) Vaginal cancer Is this a current diagnosis for this admission?: Yes Plan: I have explained to the patient that often on CT scan cancer looks similar to infection. Although she would very much like to receive the chemo and radiation therapy, she understands that her body may not be strong enough at this point. She agrees to try to antibiotics over the weekend and then decide on Sunday if she is strong enough to continue with any treatments. I will add the duragesic, as previously ordered for pain and she may continue PRN morphine as well. Otherwise, continue supportive care. We discussed code status. She states that she has a living will and agrees that at this point, she would not wish to be kept alive on machines. She requests DNR and will also discuss this with her daughter. - Plan Summary Plan Summary: I spoke with patient's daughter and primary caregiver. She is in agreement with the plan. She agrees that her mother should be DNR. She will be here to visit later today.
[2020-02-07] MEDS: FENTANYL 25 MCG/HR PATCH.TD72 TD SCH (12:43)
[2020-02-07] MEDS: MORPHINE SULFATE 10 MG/ML INJ IV PRN (12:47)
--- NOTE | 2020-02-07 17:39 | PDOC PROGRESS REPORT ---
Subjective Progress Note for:: 02/07/20 Subjective:: No adverse events overnight. No new complaints. Still having a little bit of abdominal pain. No fevers. Appetite still a bit poor. Reason For Visit: SIGMOID DIVERTICULITIS,LEUKOCYTOSIS,ABDOMINAL PAIN Physical Exam Vital Signs: Temp Pulse Resp BP Pulse Ox 98.4 F 82 18 129/55 H 93 02/07/20 15:47 02/07/20 15:47 02/07/20 15:47 02/07/20 15:47 02/07/20 15:47 Intake & Output 02/06/20 02/07/20 02/08/20 06:59 06:59 06:59 Intake Total 400 170 Output Total 200 Balance 400 -30 Weight 63.503 kg General appearance: PRESENT: no acute distress, cooperative, disheveled Respiratory exam: PRESENT: clear to auscultation kwasi, symmetrical, unlabored. ABSENT: accessory muscle use, chest wall tenderness, crackles, prolonged expiratory phas, rhonchi, tachypnea, wheezes Cardiovascular exam: PRESENT: RRR, +S1, +S2 Pulses: PRESENT: normal carotid pulses Vascular exam: PRESENT: normal capillary refill GI/Abdominal exam: PRESENT: normal bowel sounds, soft, tenderness - Left lower quadrant. ABSENT: distended, guarding, rebound Extremities exam: PRESENT: +2 edema - Right lower extremity. ABSENT: clubbing, pedal edema Musculoskeletal exam: PRESENT: normal inspection. ABSENT: deformity Neurological exam: PRESENT: awake, oriented to person, oriented to place, oriented to situation Psychiatric exam: PRESENT: appropriate affect, normal mood Skin exam: PRESENT: dry, warm Results Laboratory Results: 02/07/20 04:55 02/07/20 04:55 02/06/20 02/06/20 02/07/20 16:35 19:24 04:55 WBC 12.4 H RBC 2.74 L Hgb 8.2 L Hct 24.3 L MCV 89 MCH 29.9 MCHC 33.6 RDW 14.9 H Plt Count 334 Sodium Potassium Chloride Carbon Dioxide Anion Gap BUN Creatinine Est GFR ( Amer) Glucose Lactic Acid 0.6 L Calcium Magnesium Total Bilirubin AST Alkaline Phosphatase Total Protein Albumin TSH Blood Type A NEGATIVE Antibody Screen NEGATIVE 02/07/20 02/07/20 04:55 04:55 WBC RBC Hgb Hct MCV MCH MCHC RDW Plt Count Sodium 136.2 L Potassium 3.3 L Chloride 101 Carbon Dioxide 28 Anion Gap 7 BUN 16 Creatinine 0.84 Est GFR ( Amer) > 60 Glucose 82 Lactic Acid Calcium 8.1 L Magnesium 1.9 Total Bilirubin 0.5 AST 20 Alkaline Phosphatase 47 Total Protein 5.0 L Albumin 2.4 L TSH 0.65 Blood Type Antibody Screen 02/06/20 19:24 Blood Blood Culture (PCR) - Final Staphylococcus Species 02/06/20 02/06/20 16:35 16:35 Creatine Kinase 23 L CK-MB (CK-2) 0.30 Troponin I < 0.012 Impressions: Abdomen/Pelvis CT 02/06/20 17:29 IMPRESSION: 1. Interval development of inflammation and bowel wall thickening in the sigmoid colon and rectal vault suggestive of colitis and/or diverticulitis. 2. Probable soft tissue mass in the midline between the bladder and the rectum in the expected location of the uterus. The appearance is unchanged. Chest X-Ray 02/06/20 17:30 IMPRESSION: NO ACUTE RADIOGRAPHIC FINDING IN THE CHEST. Assessment and Plan - Diagnosis (1) Gram-negative bacteremia Is this a current diagnosis for this admission?: Yes (2) Sigmoid diverticulitis Is this a current diagnosis for this admission?: Yes (3) Deep vein thrombosis of right lower extremity Qualifiers: Affected thrombotic vein of extremity: unspecified lower extremity distal vein Chronicity: unspecified Qualified Code(s): I82.4Z1 - Acute embolism and thrombosis of unspecified deep veins of right distal lower extremity Is this a current diagnosis for this admission?: Yes (4) Vaginal cancer Is this a current diagnosis for this admission?: Yes (5) Weakness Is this a current diagnosis for this admission?: Yes - Plan Summary Summary: Continue IV meropenem. We will follow-up the blood culture results and adjust antibiotic coverage accordingly. She also had a contaminant grew out of 1 of her cultures. Consult was called for gynecology but I do not think that there is anything that they can contribute at this time. - Time Time Spent with patient: 15-24 minutes Anticipated Discharge Disposition: Pending clinical course Anticipated Discharge Timeframe: Pending clinical course
[2020-02-07 20:42] LABS: APPEARANCE,URINE SLIGHTLY-CLOUDY; BILIRUBIN,URINE NEGATIVE (NEGATIVE); COLOR,URINE YELLOW; GLUCOSE, URINE NEGATIVE (NEGATIVE); KETONES,URINE TRACE mg/dL (NEGATIVE); LEUKOCYTE ESTERASE,URINE LARGE (NEGATIVE); NITRITE,URINE NEGATIVE (NEGATIVE); PROTEIN,URINE NEGATIVE (NEGATIVE); URINE SPECIFIC GRAVITY 1.008
[2020-02-07] MEDS: RINGERS SOLUTION,LACTATED 1,000 ML IV PRN (21:10)
[2020-02-07] MEDS ORDERED: FAMOTIDINE INJ/PF 20 MG/2 ML SDV IV ONE (23:45)
[2020-02-08] MEDS: RINGERS SOLUTION,LACTATED 1,000 ML IV PRN ×4 (05:32→22:56)
[2020-02-08] MEDS ORDERED: INFLUENZA QUAD (6MOS+) 2020-21 VAC 0.5 ML SYR IM ONE (08:00)
[2020-02-08] MEDS: RIVAROXABAN 15 MG TABLET PO SCH ×2 (10:01→17:22)
[2020-02-08] MEDS: MEROPENEM 1 GM in NORMAL SALINE 50 ML IV SCH ×2 (10:01→21:16)
[2020-02-08] MEDS: FAMOTIDINE INJ/PF 20 MG/2 ML SDV IV SCH ×2 (10:01→21:17)
[2020-02-08] MEDS: MORPHINE SULFATE 10 MG/ML INJ IV PRN ×3 (10:06→21:23)
[2020-02-08] MEDS: DOCUSATE SODIUM 100 MG/10 ML UDC PO SCH ×2 (10:19→17:44)
--- NOTE | 2020-02-08 13:56 | PDOC PROGRESS REPORT ---
Subjective Progress Note for:: 02/08/20 Subjective:: No adverse events overnight. No new complaints. Abdominal pain has improved. Energy level still low but she feels better overall. Reason For Visit: SIGMOID DIVERTICULITIS,LEUKOCYTOSIS,ABDOMINAL PAIN Physical Exam Vital Signs: Temp Pulse Resp BP Pulse Ox 98.1 F 76 17 114/55 L 96 02/08/20 11:55 02/08/20 11:55 02/08/20 11:55 02/08/20 11:55 02/08/20 11:55 Intake & Output 02/07/20 02/08/20 02/09/20 06:59 06:59 06:59 Intake Total 400 1460 1310 Output Total 200 Balance 400 1260 1310 Weight 63.503 kg 68.8 kg General appearance: PRESENT: no acute distress, cooperative, disheveled Respiratory exam: PRESENT: clear to auscultation kwasi, symmetrical, unlabored. ABSENT: accessory muscle use, chest wall tenderness, crackles, prolonged expiratory phas, rhonchi, tachypnea, wheezes Cardiovascular exam: PRESENT: RRR, +S1, +S2 Pulses: PRESENT: normal carotid pulses Vascular exam: PRESENT: normal capillary refill GI/Abdominal exam: PRESENT: normal bowel sounds, soft, tenderness - Left lower quadrant. ABSENT: distended, guarding, rebound Extremities exam: PRESENT: +2 edema - Right lower extremity. ABSENT: clubbing, pedal edema Musculoskeletal exam: PRESENT: normal inspection. ABSENT: deformity Neurological exam: PRESENT: awake, oriented to person, oriented to place, oriented to situation Psychiatric exam: PRESENT: appropriate affect, normal mood Skin exam: PRESENT: dry, warm Results Laboratory Results: 02/07/20 04:55 02/07/20 04:55 02/07/20 20:00 Urine Color YELLOW Urine Appearance SLIGHTLY-CLOUDY Urine pH 6.0 Ur Specific [place] 1.008 Urine Protein NEGATIVE Urine Glucose (UA) NEGATIVE Urine Ketones TRACE H Urine Blood MODERATE H Urine Nitrite NEGATIVE Ur Leukocyte Esterase LARGE H Urine WBC (Auto) 128 Urine RBC (Auto) 26 02/06/20 19:24 Blood Blood Culture (PCR) - Final Staphylococcus Species 02/06/20 21:07 Blood Blood Culture (PCR) - Final Escherichia Coli 02/06/20 02/06/20 16:35 16:35 Creatine Kinase 23 L CK-MB (CK-2) 0.30 Troponin I < 0.012 Impressions: Abdomen/Pelvis CT 02/06/20 17:29 IMPRESSION: 1. Interval development of inflammation and bowel wall thickening in the sigmoid colon and rectal vault suggestive of colitis and/or diverticulitis. 2. Probable soft tissue mass in the midline between the bladder and the rectum in the expected location of the uterus. The appearance is unchanged. Chest X-Ray 02/06/20 17:30 IMPRESSION: NO ACUTE RADIOGRAPHIC FINDING IN THE CHEST. Assessment and Plan - Diagnosis (1) Gram-negative bacteremia Is this a current diagnosis for this admission?: Yes (2) Sigmoid diverticulitis Is this a current diagnosis for this admission?: Yes (3) Deep vein thrombosis of right lower extremity Qualifiers: Affected thrombotic vein of extremity: unspecified lower extremity distal vein Chronicity: unspecified Qualified Code(s): I82.4Z1 - Acute embolism and thrombosis of unspecified deep veins of right distal lower extremity Is this a current diagnosis for this admission?: Yes (4) Vaginal cancer Is this a current diagnosis for this admission?: Yes (5) Weakness Is this a current diagnosis for this admission?: Yes - Plan Summary Summary: Continue IV meropenem. It looks like she is growing out an E. coli, we are waiting for sensitivities. She also had a contaminant grew out of 1 of her cultures. Consult was called for gynecology but I do not think that there is anything that they can contribute at this time. With any luck she can be switched to an oral antibiotic which she can complete at home. - Time Time Spent with patient: 15-24 minutes Anticipated Discharge Disposition: Home with Home Health Anticipated Discharge Timeframe: within 72 hours
[2020-02-09] MEDS: RINGERS SOLUTION,LACTATED 1,000 ML IV PRN ×2 (05:02→11:20)
[2020-02-09] MEDS: MORPHINE SULFATE 10 MG/ML INJ IV PRN ×4 (07:33→22:57)
[2020-02-09] MEDS: RIVAROXABAN 15 MG TABLET PO SCH ×2 (07:33→17:36)
--- NOTE | 2020-02-09 07:43 | PDOC PROGRESS REPORT ---
Subjective Progress Note for:: 02/09/20 Subjective:: Patient states that she has not gotten any sleep because she has been up to urinate every 2 hours like clockwork. However, the amount of drainage from her fistula is much less. No other complaints. She wants to resume treatment but is not sure if she is strong enough today. Reason For Visit: SIGMOID DIVERTICULITIS,LEUKOCYTOSIS,ABDOMINAL PAIN Physical Exam Vital Signs: Temp Pulse Resp BP Pulse Ox 98.6 F 79 17 132/51 H 93 02/08/20 23:35 02/08/20 23:35 02/08/20 23:35 02/08/20 23:35 02/08/20 23:35 Intake & Output 02/08/20 02/09/20 02/10/20 06:59 06:59 06:59 Intake Total 1460 5030 Output Total 200 Balance 1260 5030 Weight 68.8 kg 68.8 kg General appearance: PRESENT: no acute distress Head exam: PRESENT: normocephalic Respiratory exam: PRESENT: unlabored Extremities exam: ABSENT: pedal edema Neurological exam: PRESENT: alert, awake, oriented to person, oriented to place, oriented to time, oriented to situation Psychiatric exam: PRESENT: appropriate affect Skin exam: PRESENT: normal color Results Laboratory Results: 02/07/20 04:55 02/07/20 04:55 02/06/20 21:07 Blood Blood Culture (PCR) - Final Escherichia Coli 02/06/20 19:24 Blood Blood Culture (PCR) - Final Staphylococcus Species 02/06/20 02/06/20 16:35 16:35 Creatine Kinase 23 L CK-MB (CK-2) 0.30 Troponin I < 0.012 Impressions: Abdomen/Pelvis CT 02/06/20 17:29 IMPRESSION: 1. Interval development of inflammation and bowel wall thickening in the sigmoid colon and rectal vault suggestive of colitis and/or diverticulitis. 2. Probable soft tissue mass in the midline between the bladder and the rectum in the expected location of the uterus. The appearance is unchanged. Chest X-Ray 02/06/20 17:30 IMPRESSION: NO ACUTE RADIOGRAPHIC FINDING IN THE CHEST. Assessment & Plan - Diagnosis (1) Deep vein thrombosis of right lower extremity Qualifiers: Affected thrombotic vein of extremity: unspecified lower extremity distal vein Chronicity: unspecified Qualified Code(s): I82.4Z1 - Acute embolism and thrombosis of unspecified deep veins of right distal lower extremity Is this a current diagnosis for this admission?: Yes Plan: Continue Xarelto. No evidence of bleeding. (2) Vaginal cancer Is this a current diagnosis for this admission?: Yes Plan: I discussed resuming radiation therapy with patient today. She understands that it is her choice if she feels strong enough. She will consider this. (3) Gram-negative bacteremia Is this a current diagnosis for this admission?: Yes Plan: On appropriate antibiotics. Await sensitivities. Transition to PO once Hospitalists feel this is safe. Hopefully this will greatly help her symptoms. - Time Time Spent with patient: 15-24 minutes
[2020-02-09] MEDS: DOCUSATE SODIUM 100 MG/10 ML UDC PO SCH ×2 (09:19→17:55)
[2020-02-09] MEDS: FAMOTIDINE INJ/PF 20 MG/2 ML SDV IV SCH ×2 (09:20→21:57)
[2020-02-09] MEDS: CEPHALEXIN 500 MG CAPSULE PO SCH ×3 (11:20→23:00)
[2020-02-09] MEDS: PROPRANOLOL HCL 10 MG TABLET PO SCH ×2 (13:22→21:57)
--- NOTE | 2020-02-09 13:59 | PDOC PROGRESS REPORT ---
Subjective Progress Note for:: 02/09/20 Subjective:: No adverse events overnight. No new complaints. Vital signs have been stable. For some reason she has been on clear liquids and would like to have her diet advanced, and I have no problem with this. No fevers. Reason For Visit: SIGMOID DIVERTICULITIS,LEUKOCYTOSIS,ABDOMINAL PAIN Physical Exam Vital Signs: Temp Pulse Resp BP Pulse Ox 98.0 F 82 17 158/57 H 94 02/09/20 11:18 02/09/20 11:18 02/09/20 11:18 02/09/20 11:18 02/09/20 11:18 Intake & Output 02/08/20 02/09/20 02/10/20 06:59 06:59 06:59 Intake Total 1460 5030 1130 Output Total 200 Balance 1260 5030 1130 Weight 68.8 kg 68.8 kg 69.7 kg General appearance: PRESENT: no acute distress, cooperative, disheveled Respiratory exam: PRESENT: clear to auscultation kwasi, symmetrical, unlabored. ABSENT: accessory muscle use, chest wall tenderness, crackles, prolonged expiratory phas, rhonchi, tachypnea, wheezes Cardiovascular exam: PRESENT: RRR, +S1, +S2 Pulses: PRESENT: normal carotid pulses Vascular exam: PRESENT: normal capillary refill GI/Abdominal exam: PRESENT: normal bowel sounds, soft, tenderness - Left lower quadrant. ABSENT: distended, guarding, rebound Extremities exam: PRESENT: +2 edema - Right lower extremity. ABSENT: clubbing, pedal edema Musculoskeletal exam: PRESENT: normal inspection. ABSENT: deformity Neurological exam: PRESENT: awake, oriented to person, oriented to place, oriented to situation Psychiatric exam: PRESENT: appropriate affect, normal mood Skin exam: PRESENT: dry, warm Results Laboratory Results: 02/07/20 04:55 02/07/20 04:55 02/06/20 19:24 Blood Blood Culture (PCR) - Final Staphylococcus Species 02/06/20 19:24 Blood Blood Culture - Final Escherichia Coli Staphylococcus Hominis 02/06/20 21:07 Blood Blood Culture (PCR) - Final Escherichia Coli 02/06/20 21:07 Blood Blood Culture - Final Escherichia Coli 02/06/20 02/06/20 16:35 16:35 Creatine Kinase 23 L CK-MB (CK-2) 0.30 Troponin I < 0.012 Impressions: Abdomen/Pelvis CT 02/06/20 17:29 IMPRESSION: 1. Interval development of inflammation and bowel wall thickening in the sigmoid colon and rectal vault suggestive of colitis and/or diverticulitis. 2. Probable soft tissue mass in the midline between the bladder and the rectum in the expected location of the uterus. The appearance is unchanged. Chest X-Ray 02/06/20 17:30 IMPRESSION: NO ACUTE RADIOGRAPHIC FINDING IN THE CHEST. Assessment and Plan - Diagnosis (1) Gram-negative bacteremia Is this a current diagnosis for this admission?: Yes (2) Sigmoid diverticulitis Is this a current diagnosis for this admission?: Yes (3) Deep vein thrombosis of right lower extremity Qualifiers: Affected thrombotic vein of extremity: unspecified lower extremity distal vein Chronicity: unspecified Qualified Code(s): I82.4Z1 - Acute embolism and thrombosis of unspecified deep veins of right distal lower extremity Is this a current diagnosis for this admission?: Yes (4) Vaginal cancer Is this a current diagnosis for this admission?: Yes (5) Weakness Is this a current diagnosis for this admission?: Yes - Plan Summary Summary: The E. coli was pansensitive. Clinically she is doing well. We will switch her over to p.o. Keflex today and monitor her overnight. If she does okay overnight, she can go home to complete a course of Keflex for her bacteremia. She is in agreement with this plan. - Time Time Spent with patient: 15-24 minutes Anticipated Discharge Disposition: Home, Self Care Anticipated Discharge Timeframe: within 24 hours
[2020-02-10] MEDS: MORPHINE SULFATE 10 MG/ML INJ IV PRN (03:55)
[2020-02-10] MEDS: CEPHALEXIN 500 MG CAPSULE PO SCH ×2 (05:00→13:32)
--- NOTE | 2020-02-10 08:30 | PDOC PROGRESS REPORT ---
Subjective Progress Note for:: 02/10/20 Subjective:: Patient states that she is feeling better. The pain patch is doing well. She is sitll asking for pain meds as she needs them. She is very talkative today and states that she is eating well. She will start taking her stool softener again tonight, as she believes she may be getting constipated again. The rectal drainage has improved. She has been walking daily, but is still very weak and has no energy to complete her ADLs this morning without assistance. She decided to wait and continue her treatment for the cancer next week when she is stronger. We discussed at length the fact that she needs to be strong, but the cancer will continue to weaken her until she gets treatment completed. Reason For Visit: SIGMOID DIVERTICULITIS,LEUKOCYTOSIS,ABDOMINAL PAIN Physical Exam Vital Signs: Temp Pulse Resp BP Pulse Ox 98.0 F 75 17 141/51 H 95 02/10/20 08:05 02/10/20 08:05 02/10/20 08:05 02/10/20 08:05 02/10/20 08:05 Intake & Output 02/09/20 02/10/20 02/11/20 06:59 06:59 06:59 Intake Total 5030 3260 Balance 5030 3260 Weight 68.8 kg 70.2 kg General appearance: PRESENT: no acute distress Head exam: PRESENT: normocephalic Eye exam: PRESENT: EOMI Respiratory exam: PRESENT: unlabored Musculoskeletal exam: PRESENT: normal inspection Neurological exam: PRESENT: alert, awake, oriented to person, oriented to place, oriented to time, oriented to situation Psychiatric exam: PRESENT: appropriate affect Skin exam: PRESENT: normal color Results Laboratory Results: 02/07/20 04:55 02/07/20 04:55 02/06/20 19:24 Blood Blood Culture (PCR) - Final Staphylococcus Species 02/06/20 19:24 Blood Blood Culture - Final Escherichia Coli Staphylococcus Hominis 02/06/20 21:07 Blood Blood Culture (PCR) - Final Escherichia Coli 02/06/20 21:07 Blood Blood Culture - Final Escherichia Coli 02/06/20 02/06/20 16:35 16:35 Creatine Kinase 23 L CK-MB (CK-2) 0.30 Troponin I < 0.012 Impressions: Abdomen/Pelvis CT 02/06/20 17:29 IMPRESSION: 1. Interval development of inflammation and bowel wall thickening in the sigmoid colon and rectal vault suggestive of colitis and/or diverticulitis. 2. Probable soft tissue mass in the midline between the bladder and the rectum in the expected location of the uterus. The appearance is unchanged. Chest X-Ray 02/06/20 17:30 IMPRESSION: NO ACUTE RADIOGRAPHIC FINDING IN THE CHEST. Assessment & Plan - Diagnosis (1) Deep vein thrombosis of right lower extremity Qualifiers: Affected thrombotic vein of extremity: unspecified lower extremity distal vein Chronicity: unspecified Qualified Code(s): I82.4Z1 - Acute embolism and thrombosis of unspecified deep veins of right distal lower extremity Is this a current diagnosis for this admission?: Yes Plan: Continue Eliquis (2) Vaginal cancer Is this a current diagnosis for this admission?: Yes Plan: Patient has chosen to delay treatment until her infection is cleared and she is stronger. I agree with this decision. She understands that the decision is hers. (3) Gram-negative bacteremia Is this a current diagnosis for this admission?: Yes Plan: Bowels are improving. She is getting stronger. Continue antibiotics per hospitalist team. - Time Time Spent with patient: 15-24 minutes - Plan Summary Plan Summary: I will repeat CBC, CMP in AM and transfuse if indicated. She would like to plan on discharge in 2 days, if she is feeling stronger. We discussed nutrition. She will continue to work with PT.
[2020-02-10] MEDS: PROPRANOLOL HCL 10 MG TABLET PO SCH (09:12)
[2020-02-10] MEDS: FAMOTIDINE INJ/PF 20 MG/2 ML SDV IV SCH (09:13)
[2020-02-10] MEDS: FENTANYL 25 MCG/HR PATCH.TD72 TD SCH (09:19)
[2020-02-10] MEDS: DOCUSATE SODIUM 100 MG/10 ML UDC PO SCH (09:20)
[2020-02-10] MEDS: RIVAROXABAN 15 MG TABLET PO SCH (09:20)
--- NOTE | 2020-02-10 13:41 | PDOC DISCHARGE SUMMARY ---
Impression - Admit/DC Date/PCP Admission Date/Primary Care Provider: 02/06/20 23:27 Discharge Date: 02/10/20 - Discharge Diagnosis (1) Sigmoid diverticulitis Is this a current diagnosis for this admission?: Yes (2) E coli bacteremia Is this a current diagnosis for this admission?: Yes (3) Deep vein thrombosis of right lower extremity Is this a current diagnosis for this admission?: Yes (4) Vaginal cancer Is this a current diagnosis for this admission?: Yes (5) Weakness Is this a current diagnosis for this admission?: Yes (6) Colitis Is this a current diagnosis for this admission?: Yes (7) Rectal vaginal fistula Is this a current diagnosis for this admission?: Yes - Additional Information Resuscitation Status: Full Code Discharge Diet: As Tolerated Discharge Activity: Activity As Tolerated Referrals: CHAUNCEY HIGH MD [ACTIVE STAFF] - Prescriptions: Amoxicillin/Potassium Clav [Augmentin 875-125 Tablet] 1 tab PO TID #27 tablet Docusate Sodium [Colace 100 mg Capsule] 100 mg PO BID #30 Ondansetron [Zofran Odt 4 mg Tablet] 8 mg PO Q8HP PRN #10 PRN Reason: For Nausea/Vomiting Home Medications: Cholecalciferol (Vitamin D3) [Vitamin D3 1000 Unit Tablet] 1,000 unit PO DAILY 02/07/20 Cyanocobalamin (Vitamin B-12) [Vitamin B-12 1000 mcg Tablet] 1,000 mcg PO DAILY 02/07/20 Escitalopram Oxalate [Lexapro 10 mg Tablet] 10 mg PO QHS 02/07/20 Fentanyl [Duragesic 25 mcg/hr Transdermal Patch] 1 each TD Q3D 02/07/20 Latanoprost [Xalatan 0.005% Oph Soln 2.5 ml] 1 drop OU QHS 02/07/20 Losartan Potassium [Cozaar 50 mg Tablet] 50 mg PO DAILY 02/07/20 Metformin HCl [Glucophage 500 mg Tablet] 500 mg PO DAILY 02/07/20 Propranolol HCl [Inderal 10 mg Tablet] 10 mg PO Q12 02/07/20 Rivaroxaban [Xarelto 15 mg Tablet] 15 mg PO DAILY 02/07/20 Rosuvastatin Calcium 5 mg PO QHS 02/07/20 Amoxicillin/Potassium Clav [Augmentin 875-125 Tablet] 1 tab PO TID #27 tablet 02/10/20 Docusate Sodium [Colace 100 mg Capsule] 100 mg PO BID #30 02/10/20 Morphine Sulfate [Morphine Ir 15 mg Tablet] 15 mg PO Q6HP PRN #0 MDD 1-2 TABS Q4HP 02/10/20 Ondansetron [Zofran Odt 4 mg Tablet] 8 mg PO Q8HP PRN #10 02/10/20 History of Present Illiness History of Present Illness: According to admitting provider: MINOO LEWIS is a 79 year old female who presented to the emergency room with a 1 week history of generalized weakness. She admits progressively worsening generalized weakness accompanied by severe fatigue with malaise and associated with progressive we worsening anorexia over the last week and a vague lower abdominal pain which developed over the last 2 days. Her weakness is exacerbated with any exertion or activity. She denies other associated or accompanying signs and symptoms. She denies prior similar episodes. She has not identified any additional aggravating or ameliorating factors for her weakness. Her vaginal cancer with a rectovaginal fistula was diagnosed 6 weeks ago and she has undergone radiation therapy but has not been able to start chemotherapy with Dr. High due to her current illness. She was also found to have a deep venous thrombosis in her right lower extremity 1 week ago. In the emergency room she was found to have an acute sigmoid colitis/diverticulitis on CT scan of the abdomen and a leukocytosis. She was subsequently admitted hospital for further evaluation and treatment. Hospital Course Hospital Course: Patient presented to the hospital with generalized weakness, fatigue and lower abdominal pain. On presentation, blood work revealed leukocytosis of 15,000. Also demonstrated anemia. Metabolic panel was notable for mild hyponatremia. Blood culture grew E. coli which is pansensitive. Abdominal CT reveals sigmoid colitis/diverticulitis also involving her rectal vault with soft tissue mass consistent with her known history of recently diagnosed vaginal cancer. Patient was started on IV antibiotics initially and IV fluids. She was evaluated by oncology who recommends that they will hold off until patient is stronger before reinitiating treatment of vaginal cancer. On the past few days patient has been tolerating oral antibiotics. Sensitivity of E. coli shows that it is susceptible to Augmentin which I will be discharging patient home. She will take Augmentin for 9 days to complete treatment of her diverticulitis. She is tolerating po but seems hesitant about going home due to her weakness. She did walk with physical therapy and has done well and she is able to get up and move around herself. She is already set up with home health via [facility] which will be reinitiated as well as long-term to check up on her at home. I have discussed her condition with her daughter today who also raised the issue with rectal fistula which gives her a lot of discomfort. The CT scan did not note any rectovaginal fistula but seems that it was done without contrast. I did discuss with Dr. High who informs me that patient saw surgery and [facility] regarding this and at this point, the plan is to treat her vaginal cancer and see if this will address the fistula. I have recommended adequate hydration and continuation of antibiotic therapy as prescribed as well as appropriate follow- up. Physical Exam Vital Signs: Temp Pulse Resp BP Pulse Ox 98.5 F 68 18 135/48 H 94 02/10/20 12:12 02/10/20 12:12 02/10/20 12:12 02/10/20 12:12 02/10/20 12:12 Intake & Output 02/09/20 02/10/20 02/11/20 06:59 06:59 06:59 Intake Total 5030 3260 510 Balance 5030 3260 510 Weight 68.8 kg 70.2 kg General appearance: PRESENT: no acute distress, cooperative Neck exam: ABSENT: JVD Respiratory exam: PRESENT: symmetrical, unlabored. ABSENT: accessory muscle use, tachypnea, wheezes Cardiovascular exam: PRESENT: +S1, +S2. ABSENT: tachycardia GI/Abdominal exam: PRESENT: soft, tenderness - Minimal. ABSENT: firm, guarding, hernia, rebound, rigid Neurological exam: PRESENT: alert, awake, oriented to person, oriented to place, oriented to time Psychiatric exam: PRESENT: anxious, depressed. ABSENT: homicidal ideation, suicidal ideation Results Laboratory Results: WBC 12.4 10^3/uL (4.0-10.5) H 02/07/20 04:55 RBC 2.74 10^6/uL (3.72-5.28) L 02/07/20 04:55 Hgb 8.2 g/dL (12.0-15.5) L 02/07/20 04:55 Hct 24.3 % (36.0-47.0) L 02/07/20 04:55 MCV 89 fl (80-97) 02/07/20 04:55 MCH 29.9 pg (27.0-33.4) 02/07/20 04:55 MCHC 33.6 g/dL (32.0-36.0) 02/07/20 04:55 RDW 14.9 % (11.5-14.0) H 02/07/20 04:55 Plt Count 334 10^3/uL (150-450) 02/07/20 04:55 Lymph % (Auto) 8.5 % (13-45) L 02/06/20 16:35 [place] % (Auto) 5.5 % (3-13) 02/06/20 16:35 Eos % (Auto) 0.2 % (0-6) 02/06/20 16:35 Baso % (Auto) 0.2 % (0-2) 02/06/20 16:35 Absolute Neuts (auto) 13.1 10^3/uL (1.7-8.2) H 02/06/20 16:35 Absolute Lymphs (auto) 1.3 10^3/uL (0.5-4.7) 02/06/20 16:35 Absolute Monos (auto) 0.8 10^3/uL (0.1-1.4) 02/06/20 16:35 Absolute Eos (auto) 0.0 10^3/uL (0.0-0.6) 02/06/20 16:35 Absolute Basos (auto) 0.0 10^3/uL (0.0-0.2) 02/06/20 16:35 Seg Neutrophils % 85.6 % (42-78) H 02/06/20 16:35 Sodium 136.2 mmol/L (137-145) L 02/07/20 04:55 Potassium 3.3 mmol/L (3.6-5.0) L 02/07/20 04:55 Chloride 101 mmol/L (98-107) 02/07/20 04:55 Carbon Dioxide 28 mmol/L (22-30) 02/07/20 04:55 Anion Gap 7 (5-19) 02/07/20 04:55 BUN 16 mg/dL (7-20) 02/07/20 04:55 Creatinine 0.84 mg/dL (0.52-1.25) 02/07/20 04:55 Est GFR ( Amer) > 60 (>60) 02/07/20 04:55 Est GFR (MDRD) Non-Af > 60 (>60) 02/07/20 04:55 Glucose 82 mg/dL (75-110) 02/07/20 04:55 POC Glucose 111 mg/dL (70-110) H 02/10/20 11:03 Lactic Acid 0.6 mmol/L (0.7-2.1) L 02/06/20 19:24 Calcium 8.1 mg/dL (8.4-10.2) L 02/07/20 04:55 Ionized Calcium [place] 1.10 mmol/L (1.14-1.30) L 02/06/20 16:35 Phosphorus 3.4 mg/dL (2.5-4.5) 02/06/20 16:35 Magnesium 1.9 mg/dL (1.6-2.3) 02/07/20 04:55 Total Bilirubin 0.5 mg/dL (0.2-1.3) 02/07/20 04:55 Direct Bilirubin 0.4 mg/dL (0.0-0.4) 02/07/20 04:55 Neonat Total Bilirubin Not Reportable 02/07/20 04:55 Neonat Direct Bilirubin Not Reportable 02/07/20 04:55 Neonat Indirect Bili Not Reportable 02/07/20 04:55 AST 20 U/L (14-36) 02/07/20 04:55 ALT 17 U/L (<35) 02/07/20 04:55 Alkaline Phosphatase 47 U/L (38-126) 02/07/20 04:55 Creatine Kinase 23 U/L (30-135) L 02/06/20 16:35 CK-MB (CK-2) 0.30 ng/mL (<4.55) 02/06/20 16:35 Troponin I < 0.012 ng/mL 02/06/20 16:35 Total Protein 5.0 g/dL (6.3-8.2) L 02/07/20 04:55 Albumin 2.4 g/dL (3.5-5.0) L 02/07/20 04:55 TSH 0.65 uIU/mL (0.47-4.68) 02/07/20 04:55 Urine Color YELLOW 02/07/20 20:00 Urine Appearance SLIGHTLY-CLOUDY 02/07/20 20:00 Urine pH 6.0 (5.0-9.0) 02/07/20 20:00 Ur Specific [place] 1.008 02/07/20 20:00 Urine Protein NEGATIVE mg/dL (NEGATIVE) 02/07/20 20:00 Urine Glucose (UA) NEGATIVE mg/dL (NEGATIVE) 02/07/20 20:00 Urine Ketones TRACE mg/dL (NEGATIVE) H 02/07/20 20:00 Urine Blood MODERATE (NEGATIVE) H 02/07/20 20:00 Urine Nitrite NEGATIVE (NEGATIVE) 02/07/20 20:00 Urine Bilirubin NEGATIVE (NEGATIVE) 02/07/20 20:00 Urine Urobilinogen 2.0 mg/dL (<2.0) H 02/07/20 20:00 Ur Leukocyte Esterase LARGE (NEGATIVE) H 02/07/20 20:00 Urine WBC (Auto) 128 /HPF 02/07/20 20:00 Urine RBC (Auto) 26 /HPF 02/07/20 20:00 Urine Bacteria (Auto) TRACE /HPF 02/07/20 20:00 Urine WBC Clumps FEW /HPF 02/07/20 20:00 Squamous Epi Cells Auto <1 /HPF 02/07/20 20:00 Urine Mucus (Auto) RARE /LPF 02/07/20 20:00 Urine Ascorbic Acid NEGATIVE (NEGATIVE) 02/07/20 20:00 Blood Type A NEGATIVE 02/06/20 16:35 Antibody Screen NEGATIVE 02/06/20 16:35 02/06/20 16:35 CK-MB (CK-2) 0.30 Troponin I < 0.012 Impressions: Abdomen/Pelvis CT 02/06/20 17:29 IMPRESSION: 1. Interval development of inflammation and bowel wall thickening in the sigmoid colon and rectal vault suggestive of colitis and/or diverticulitis. 2. Probable soft tissue mass in the midline between the bladder and the rectum in the expected location of the uterus. The appearance is unchanged. Chest X-Ray 02/06/20 17:30 IMPRESSION: NO ACUTE RADIOGRAPHIC FINDING IN THE CHEST. Plan Time Spent: Greater than 30 Minutes Stroke Is this a Stroke Patient?: No Acute Heart Failure Is this a Heart Failure Patient?: No
[2020-02-10 14:38] VITALS: BP 125/42
== END 2020-02-10 16:15 | disposition home health service (06) | DRG 392 ==
LOC: ER 13:32 → EH 23:27 → 4S 02-07 00:45
PROVIDERS: ADMIT Emergency Medicine; ATTEND Internal Medicine
DX: K57.32 Diverticulitis of large intestine without perforation or abscess without bleeding (principal); R78.81 Bacteremia; N82.3 Fistula of vagina to large intestine; I82.4Z1 Acute embolism and thrombosis of unspecified deep veins of right distal lower extremity; E87.1 Hypo-osmolality and hyponatremia; C52 Malignant neoplasm of vagina; B96.20 Unspecified Escherichia coli [E. coli] as the cause of diseases classified elsewhere; I10 Essential (primary) hypertension; K52.9 Noninfective gastroenteritis and colitis, unspecified; D64.9 Anemia, unspecified; Z86.718 Personal history of other venous thrombosis and embolism; J44.9 Chronic obstructive pulmonary disease, unspecified; M19.90 Unspecified osteoarthritis, unspecified site; Z90.710 Acquired absence of both cervix and uterus; Z82.49 Family history of ischemic heart disease and other diseases of the circulatory system; Z79.899 Other long term (current) drug therapy; Z88.7 Allergy status to serum and vaccine; Z88.8 Allergy status to other drugs, medicaments and biological substances; Z91.010 Allergy to peanuts; Z85.828 Personal history of other malignant neoplasm of skin; Z79.84 Long term (current) use of oral hypoglycemic drugs; Z23 Encounter for immunization
CPT/HCPCS: 36415; 71045; 74176; 80053; 81001; 82330; 82550; 82553; 82962; 83605; 83735; 84100; 84443; 84484; 85025; 85027; 86850; 86900; 86901; 87040; 87077; 87150; 87186; 90471; 90686; 93005; 93010; 96361; 96365; 96375; 99285; G0008; J1642; J2060; J2185; J2270; J2405; J2543; J3490; J7030; J7050; J7120; S0028